=== PATIENT | female | born 1965 | race Caucasian/White ===

== ENCOUNTER 2024-06-06 10:23 | Emergency (ER) | payer BC ==
[~2024-06-06] VITALS: Ht 157.5 cm; Wt 69.4 kg
[2024-06-06 10:28] VITALS: BP 152/73; PULSE 64; RESP 18; TEMP 97.8; O2SAT 99
[2024-06-06 11:18] LABS: APPEARANCE,URINE CLEAR (CLEAR); BILIRUBIN,URINE NEGATIVE (NEGATIVE); BLOOD, URINE 1+ (NEGATIVE); COLOR,URINE YELLOW (YELLOW); LEUKOCYTE ESTERASE ,URINE 1+ (NEGATIVE); NITRITE, URINE NEGATIVE (NEGATIVE); PROTEIN,URINE NEGATIVE (NEGATIVE); UGLUCOSE NEGATIVE (NEGATIVE); UROBILINOGEN,URINE 0.2 EU/dL (0.2 - 1)
[2024-06-06] MEDS: NACL 0.9% 1,000 ML IV ONE (11:19)
[2024-06-06 11:20] LABS: BASOPHILS # (AUTO) 0.1 K/uL (0.00-0.22); BASOPHILS % (AUTO) 0.9 % (0.0-2.0); EOSINOPHILS # (AUTO) 0.2 K/uL (0-0.4); EOSINOPHILS % (AUTO) 2.5 % (0.0-4.0); HEMATOCRIT 41.6 % (36-48); HEMOGLOBIN 13.8 g/dL (12.0-16.0); LYMPHOCYTES # (AUTO) 1.5 K/uL (2.5-16.5); LYMPHOCYTES % (AUTO) 23.8 % (20.5-51.1); MEAN CORPUSCULAR HEMOGLOBIN 30 pg (27-31); MEAN CORPUSCULAR HGB CONC 33 g/dL (33-37); MEAN CORPUSCULAR VOLUME 91.5 fL (80-94); MONOCYTES # (AUTO) 0.4 K/uL (0.8-1.0); MONOCYTES % (AUTO) 6.2 % (1.7-9.3); NEUTROPHILS # (AUTO) 4.1 K/uL (1.8-7.7); NEUTROPHILS % (AUTO) 66.6 % (42.2-75.2); PLATELET COUNT (AUTO) 213 K/uL (140-450); RED BLOOD CELL COUNT(AUTO) 4.55 MIL/uL (4.20-5.40); WHITE BLOOD COUNT (AUTO) 6.1 K/uL (4.8-10.8)
[2024-06-06] MEDS: KETOROLAC 30 MG/ML VIAL IVP ONE (11:20)
[2024-06-06 11:27] VITALS: O2SAT 99
[2024-06-06 11:33] LABS: ANION GAP 11.4 (8-16); CALCIUM 8.3 mg/dL (8.5-10.1); CARBON DIOXIDE 28.1 mmol/L (21-32); CREATININE 0.6 mg/dL (0.6-1.3); POTASSIUM 3.5 mmol/L (3.5-5.1)
[2024-06-06 11:38] LABS: ALBUMIN 3.7 g/dL (3.4-5.0); BILIRUBIN,DIRECT 0.1 mg/dL (0.0-0.3); TOTAL BILIRUBIN 0.4 mg/dL (0.0-1.0); TOTAL PROTEIN, SERUM 6.9 g/dL (6.4-8.2)
[2024-06-06 11:47] LABS: BACTERIA,URINE 1+ /HPF (None Seen)
[2024-06-06] MEDS ORDERED: ACET-8905 PO (12:26)
[2024-06-06] MEDS ORDERED: ACET-10509 PO (12:26)
[2024-06-06] MEDS ORDERED: IBUP-2213 PO (12:26)
[2024-06-06 12:39] VITALS: BP 152/73; PULSE 64; RESP 18; TEMP 97.8; O2SAT 99
== END 2024-06-06 12:40 | disposition home or self-care (01) ==
LOC: MED 10:23
DX: K80.20 Calculus of gallbladder without cholecystitis without obstruction (principal); Z79.899 Other long term (current) drug therapy
CPT/HCPCS: 36415; 76705; 80048; 80076; 81001; 81025; 83690; 85025; 87086; 96361; 96374; 99285; J1885; J7030; Q0092